=== PATIENT | female | born 1990 | race Caucasian/White ===

== ENCOUNTER 2016-11-07 06:20 | Emergency (ER) | payer OTHER ==
[~2016-11-07] VITALS: Ht 165.1 cm; Wt 74.8 kg
--- NOTE | 2016-11-07 06:21 | NUR ---
PT NAHUN ALS. TAKEN TO BED 3
--- NOTE | 2016-11-07 06:22 | NUR ---
26Y F BIBA C/O CHEST PAIN AT 0600 TODAY WHILE AT HOME, CALLED 911. EMS PROVIDED ASA 325MG CHEWABLE AND ESTABLISHED IV ON THE FIELD 20G L HAND. CHEST PAIN IS NOT RADIATING AND SUBSTERNAL. PT STATES THIS OCCURRED 2 YEARS AGO AND SEEK MEDICAL ATTENTION AT [facility]. PT DENIES N/V/D; SKIN IS PINK/WARM/DRY; AAOX4 WITH EVEN AND STEADY GAIT; LUNGS CLEAR BL; HR EVEN AND REGULAR; PT DENIES ANY FEVER, SOB, OR COUGH AT THIS TIME; PATIENT STATES PAIN OF 10/10 AT THIS TIME; VSS; PATIENT POSITIONED FOR COMFORT; HOB ELEVATED; BEDRAILS UP X2; BED DOWN. ER MD MADE AWARE OF PT STATUS.
[2016-11-07 06:24] VITALS: BP 124/73
--- NOTE | 2016-11-07 06:40 | NUR ---
X-Ray at bedside.
--- NOTE | 2016-11-07 06:42 | NUR ---
CXR DONE AT BEDSIDE
--- NOTE | 2016-11-07 06:43 | NUR ---
Anjana clement in [facility], [place] - 11/07/16 at 0655 by MIGUE BROCK SULTANA
--- NOTE | 2016-11-07 07:10 | NUR ---
REPORT GIVEN TO YORDAN CARDONA DAYSKYFT
--- NOTE | 2016-11-07 07:18 | NUR ---
PA STUDENT EVALUATING PATIENT AT BEDSIDE.
--- NOTE | 2016-11-07 07:25 | NUR ---
SPEAKING WITH PT AT BEDSIDE.
[2016-11-07] MEDS ORDERED: NACL 0.9% 1,000 ML IV ONE (07:45)
--- NOTE | 2016-11-07 08:00 | NUR ---
SEMI-RAUSCH'S A/O X4 HOLDING CONVERSATION WITH FAMILY MEMBER AT BEDSIDE. PT DENIES CP AT THIS TIME----STATES WHEN SHE HAD PAIN IT FELT SQUEEZING PAIN MIDSTERNAL WHICH INCREASED WITH DEEP INSPIRATION. DENIES N/V --- WILL CONTINUE TO OBSERVE FOR PAIN. X1 SR UP GUERNEY LOW AND LOCKED POSITION.
--- NOTE | 2016-11-07 08:10 | NUR ---
PT LYING COMFORTABLY ON BED. DENIES ANY PAIN AT THIS MOMENT.NO ACUTE DISTRESS NOTED AT THIS TIME.WILL CONTINUE TO MONITOR PT.
[2016-11-07 08:51] VITALS: BP 104/73
== END 2016-11-07 08:52 | disposition home or self-care (01) ==
LOC: MED 06:20
DX: R07.89 Other chest pain (principal); N39.0 Urinary tract infection, site not specified
CPT/HCPCS: 36415; 71010; 80053; 81001; 81025; 82553; 83880; 84484; 85025; 85379; 85610; 85730; 87086; 93005; 96360; 99285; J7030; Q0092